=== PATIENT | female | born 1965 | race American Indian/Alaskan Native ===

== ENCOUNTER 2017-05-03 07:51 | Day surgery (SDC) | payer OTHER ==
[2017-05-03 08:38] VITALS: O2SAT 100
[2017-05-03] MEDS ORDERED: Propofol 10 mg/ml Inj (20 ML) ONE (10:21)
--- NOTE | 2017-05-03 10:25 | CP.SDSHP ---
Same Day Surgery H & P - History Proposed Procedure: COLONSCOPY Pre-Op Diagnosis: SCREENING - Previous Medical/Surgical History Neuro: Backaches Misc: Other Pain: 2.Mild Pain - Allergies Allergies: Allergies No Known Allergies Allergy (Verified 05/03/17 08:29) - Physical Exam General Appearance: N Vital Signs: Vital Signs 05/03/17 08:15 Temperature 9707 F H Pulse Rate 67 Respiratory 19 Rate Blood Pressure 135/88 O2 Sat by Pulse 100 Oximetry Mental Status: Alert & Oriented x3 Neuro: WNL Heart: WNL Lungs: WNL GI: WNL - {Optional Preform as Required} Breast: WNL Abdomen: Other Rectal: WNL Integument: WNL : WNL Ortho: Other ENT: WNL - Impression Pt. Evaluated Today:Candidate for Anesthesia & Procedure: Yes - Date & Time Time: 10:24 Short Stay Discharge - Short Stay Discharge Admitting Diagnosis/Reason for Visit: ENCOUNTER FOR SCREENING FOR MALIGNANT NEOPLASM OF Disposition: HOME/ ROUTINE
[2017-05-03 11:05] VITALS: TEMP 96
[2017-05-03] MEDS ORDERED: Belladonna-Phenobarbital PO ONE (11:10)
[2017-05-03 11:38] VITALS: RESP 16
[2017-05-03 12:08] VITALS: BP 126/74; PULSE 56
== END 2017-05-03 12:05 | disposition home or self-care (01) ==
LOC: C.ENDO 07:51
PROVIDERS: ATTEND Specialist
DX: K64.8 Other hemorrhoids (principal); K58.1 Irritable bowel syndrome with constipation
CPT/HCPCS: 45380; 82948; 88305; J2704